=== PATIENT | male | born 1965 | race Caucasian/White ===

== ENCOUNTER → 2016-11-02 | Day surgery (SDC) | payer OTHER ==
[~2016-11-02] MED LIST: Buffered Lidocaine 1% SYR 3ML* 3 ML/SYR SYRINGE INTRADERM ONE; Buffered Lidocaine 1% SYR 3ML* 3 ML/SYR SYRINGE ONE; DiMENhydriNATE IV* 50 MG/ML VIAL IV PUSH PRN; Gentamicin ADULT (*) 160 MG in NS 0.9% 100 ML* 100 ML IVPB ONE; Tamsulosin CAP* 0.4 MG ONE; fentaNYL* 50 MCG/ML 2 ML VIAL (100 MCG VIAL) IV PRN; fentaNYL* 50 MCG/ML 2 ML VIAL (100 MCG VIAL) ONE
--- NOTE | 2016-11-02 12:21 | RAD ---
INDICATION: Shockwave lithotripsy. COMPARISON: Comparison is made with a prior KUB series from October 26, 2016. TECHNIQUE: Frontal supine films of the abdomen were obtained. FINDINGS: The small bowel and colon appear nondistended. There is a double-J stent catheter present on the left side. There are calcific densities which project over the lower pole of the left kidney. The largest measures 8 mm in size. There is also a calculus adjacent to the proximal portion of the stent catheter measuring 7 mm in size. IMPRESSION: LEFT RENAL AND URETERAL CALCULI, UNCHANGED.
--- NOTE | 2016-11-02 18:36 | RAD ---
Indication: Post LEFT lithotripsy. Comparison: 1210 hours exam of the same date. Technique: Supine abdomen. Report: Typical partial obscuration on the renal fossa due to bowel contents. 0.5 cm maximum dimension stone visualized approximating the proximal segment of the ureteral stent with suggestion of decreased density compared with the earlier exam of the same date. Decreased density of 0.6 cm stone at the lower pole of the LEFT kidney compared with the earlier exam. Unremarkable paraspinal soft tissue contours. IMPRESSION: Suggestion of decreased density of the LEFT renal calculi compared with the earlier exam of the same date. LEFT ureteral stent in place.
[2016-11-02 19:18] VITALS: BP 125/76
--- NOTE | 2016-11-03 16:15 | OP ---
OPERATIVE REPORT: DATE OF OPERATION: 11/02/16 - SDS DATE OF : 61 SURGEON: Tj Lewis MD ANESTHESIOLOGIST: Alonso Youssef MD ANESTHESIA: General. PRE-OP DIAGNOSES: 1. Left ureteral calculus. 2. Left renal calculi. POST-OP DIAGNOSES: 1. Left ureteral calculus. 2. Left renal calculi. OPERATIVE PROCEDURE: 1. Shock wave lithotripsy of left ureteral calculus. 2. Shock wave lithotripsy of left renal calculi. INDICATIONS: Carlos Pizarro is a 51-year-old gentleman who was evaluated for an obstructing calculus in the left ureteropelvic junction in addition to multiple renal calculi. He underwent urgent left stent insertion and is now being brought in for lithotripsy. COMPLICATIONS: None. POSTOPERATIVE CONDITION: Stable. DESCRIPTION OF PROCEDURE: After induction of general anesthesia, the patient was placed on the lithotripsy table in supine position. The obstructing calculus which was at the ureteropelvic junction adjacent to the stent was visualized and shock wave lithotripsy was commenced at a rate of 60 shocks per minute. A total of 1400 shocks were delivered to this calculus. After the initial 300 shocks, there was a brief pause in lithotripsy for a few minutes in an effort to minimize any potential trauma to the kidney. Once the calculus in the proximal ureter had been fragmented, then attention was directed to the cluster of calculi in the lower pole of the left kidney, the largest of these was identified and shock wave lithotripsy was again commenced at a rate of 60 shocks per minute. 1000 shocks were delivered to this calculus and after the completion of the procedure, the patient was awakened and transferred back to the recovery area in stable condition. The plan is to obtain an x-ray postoperatively and then an ultrasound to assess the degree of fragmentation prior to stent removal. CC: Dr. Maureen Juan; Dr. Tj Lewis* [id number] #: [id number] [facility]
== END | disposition home or self-care (01) ==
LOC: OR 11:50
PROVIDERS: ATTEND Urology
PROC: 0TF4XZZ Fragmentation in Left Kidney Pelvis, External Approach (ICD-10-PCS; principal; 2016-11-02 14:00)
DX: N13.2 Hydronephrosis with renal and ureteral calculous obstruction (principal); K21.9 Gastro-esophageal reflux disease without esophagitis; I10 Essential (primary) hypertension; E78.00 Pure hypercholesterolemia, unspecified; F41.9 Anxiety disorder, unspecified; Z87.891 Personal history of nicotine dependence
CPT/HCPCS: 74000; J1580; J3010